=== PATIENT | male | born 1955 | race Hispanic/Latino ===

== ENCOUNTER 2021-08-13 08:42 | Day surgery (SDC) | payer OTHER ==
[2021-08-12 09:01] VITALS: BP 128/72
[2021-08-13] VITALS (16 sets, daily range): BP systolic 117–141; BP diastolic 62–76
[~2021-08-13] VITALS: Ht 160 cm; Wt 48.7 kg
[~2021-08-13 08:42] MED LIST: CEFTRIAXONE 1G VIAL IVP ONE
[2021-08-13] MEDS ORDERED: CEFTRIAXONE 1G VIAL ONE (08:43)
[2021-08-13] MEDS ORDERED: LACTATED RINGERS 1000ML 1,000 ML IV ONE (08:43)
[2021-08-13] MEDS ORDERED: IOHEXOL-350 50ML VIAL IV ONE (08:57)
[2021-08-13] MEDS ORDERED: PROPOFOL 10 MG/ML 20ML VIAL IV ONE (09:06)
[2021-08-13] MEDS ORDERED: FENTANYL CITRATE PF 50 MCG/1 ML 2ML VIAL ONE (09:06)
[2021-08-13] MEDS ORDERED: LIDOCAINE PF 100MG/5ML (2%) SYRINGE 5ML ONE (09:06)
[2021-08-13 09:21] LABS: HEMATOCRIT 31.5 % (42-54)
[2021-08-13] MEDS ORDERED: EPHEDRINE SULFATE 50 MG/ML AMPULE ONE (09:31)
[2021-08-13] MEDS ORDERED: OMEP40CA21 PO (09:33)
[2021-08-13] MEDS ORDERED: SSS TONIC PO (09:33)
[2021-08-13] MEDS ORDERED: CHOL100020 PO (09:33)
[2021-08-13] MEDS ORDERED: IRON PO (09:33)
[2021-08-13] MEDS ORDERED: AZAT50TA17 PO (09:33)
[2021-08-13] MEDS ORDERED: PHENAZOPYRIDINE HCL 200 MG TABLET ONE (11:38)
[2021-08-13] MEDS ORDERED: PHENAZOPYRIDINE HCL 200 MG TABLET PO ONE (13:45)
== END 2021-08-13 12:25 | disposition home or self-care (01) ==
LOC: DAH 08:42
PROVIDERS: ATTEND Urology
DX: R31.0 Gross hematuria (principal); D49.4 Neoplasm of unspecified behavior of bladder; Z87.891 Personal history of nicotine dependence; Z20.822 Contact with and (suspected) exposure to COVID-19
CPT/HCPCS: 36415; 52204; 52235; 74420; 85014; 85018; 87635; 88305; 88307; 88341; 88342; A4215; A4216; A4221; A4222; A4223 ×3; A4344; A4354; A4358; A4606; A4663; C1769; C9803; J0696; J2001; J2704; J3010; J3490; J7120 ×2; Q9967

== ENCOUNTER → 2024-01-26 | Outpatient (CLI) | payer OTHER ==
[~2024-01-26] MED LIST changes: +AZAT50TA17 PO; -CEFTRIAXONE 1G VIAL IVP ONE; +CHOL100020 PO; +IOHEXOL 350 MG/ML 100ML INFUS..BTL IV ONE; +IRON PO; +OMEP40CA21 PO; +SSS TONIC PO
== END | disposition home or self-care (01) ==
LOC: RAH 08:28
PROVIDERS: ATTEND Internal Medicine Gastroenterology
DX: K63.89 Other specified diseases of intestine (principal); R18.8 Other ascites; R19.7 Diarrhea, unspecified; R63.4 Abnormal weight loss; K50.90 Crohn's disease, unspecified, without complications
CPT/HCPCS: 74178; Q9967